=== PATIENT | male | born 1950 | race African-American/Black ===

== ENCOUNTER 2022-04-10 13:23 | Emergency (ER) | payer OTHER ==
[~2022-04-10] VITALS: Ht 175.3 cm; Wt 98.9 kg
[2022-04-10] MEDS ORDERED: IBUPROFEN 400 MG TAB ONE (14:08)
[2022-04-10] MEDS ORDERED: IBUPROFEN 400 MG TAB PO ONE (14:15)
[2022-04-10] MEDS ORDERED: NAPROXEN250 MG PO (14:16)
== END 2022-04-10 17:35 | disposition home or self-care (01) ==
LOC: FSED 13:48
DX: S56.812A Strain of other muscles, fascia and tendons at forearm level, left arm, initial encounter (principal); S50.12XA Contusion of left forearm, initial encounter; W18.39XA Other fall on same level, initial encounter; Y93.01 Activity, walking, marching and hiking; Y92.89 Other specified places as the place of occurrence of the external cause; M19.09 Primary osteoarthritis, other specified site; I10 Essential (primary) hypertension; M54.9 Dorsalgia, unspecified; G89.29 Other chronic pain
CPT/HCPCS: 99284